=== PATIENT | female | born 1955 | race Caucasian/White ===

== ENCOUNTER 2022-04-09 18:25 | Outpatient (REF) | payer BC, SELFPAY ==
[2022-04-09 14:57] LABS: HCT 42.9 % (36.0-46.0); MCH 31.4 pg (27.0-33.0); MCHC 32.6 % (32.0-36.0); MCV 96 fL (80-95); Platelet Count 253 10^3/uL (130-400); RBC 4.46 10^6/uL (3.93-5.22); RDW 12.3 % (11.7-14.6); RDW-SD 43.9 fL; WBC 4.29 10^3/uL (4.4-10.8)
[2022-04-09 15:28] LABS: ALT 11 U/L (14-59); AST 19 U/L (15-37); Albumin 3.9 g/dL (3.4-5.0); Alkaline Phosphatase 76 U/L (46-116); Anion Gap 6.7 mmol/L (3-11); BUN 13 mg/dL (7-18); Bilirubin, Total 0.4 mg/dL (0.2-1.0); CO2 29.3 mmol/L (21.0-32.0); CREATININE 0.8 mg/dL (0.55-1.02); Calcium 9.3 mg/dL (8.5-10.1); Calculated LDL 159 mg/dL (<100); Chloride 104 mmol/L (98-107); Cholesterol 268 mg/dL (<200); Glucose 92 mg/dL (74-106); HDL Cholesterol 81 mg/dL (40-60); Potassium 4.2 mmol/L (3.5-5.1); Sodium 140 mmol/L (136-145); Total Protein 7.2 g/dL (6.4-8.2); Triglyceride 141 mg/dL (<150)
== END 2022-04-09 18:26 | disposition home or self-care (01) ==
LOC: NCHCN 18:25
PROVIDERS: Visit Provider Nurse Practitioner Family
DX: Z00.00 Encounter for general adult medical examination without abnormal findings (principal); Z13.220 Encounter for screening for lipoid disorders
CPT/HCPCS: 80053; 80061; 85027

== ENCOUNTER 2022-12-22 17:30 | Outpatient (REF) | payer BC, SELFPAY ==
--- NOTE | 2022-12-22 08:30 | PAPFT_PTH ---
PATIENT: Janeth Wheeler LOC: [facility]#:[id number] AGE/SX: 67/F ROOM: RE12/22/[address]: Rachel Girard : 1955 BED: DIS: 12/22/2022 SPEC #: [id number] RECD: 12/22/22 18:10 STATUS: DARREN RERafy #: [id number] DOROTHEA: 12/22/22 08:[address]: Rachel Girard DEPT: [facility]LY [facility], [facility] Cytology RECD BY: Dahlia Henderson Tissues: 1 - CX/ENDOCX FOR PAP SMEARS Procedures: PAP THIN PREP/[facility] Screening HPV DNA PROBE Comments: [id number]
== END 2022-12-22 17:31 | disposition home or self-care (01) ==
LOC: NCHCN 17:30
PROVIDERS: Visit Provider Nurse Practitioner Family
DX: Z12.4 Encounter for screening for malignant neoplasm of cervix (principal); Z11.51 Encounter for screening for human papillomavirus (HPV); Z00.00 Encounter for general adult medical examination without abnormal findings
CPT/HCPCS: 88142; 87624